=== PATIENT | female | born 1985 | race Caucasian/White ===

== ENCOUNTER 2017-08-09 13:02 | Emergency (ER) | payer MEDICAID, OTHER ==
[~2017-08-09] VITALS: Ht 160 cm; Wt 121.8 kg
[~2017-08-09 13:02] MED LIST: ALBU6.7H INH; LEVA15HF4 IH; LORA10TA2 PO; NO HOME MEDS; SIN10C PO
[2017-08-09 15:31] VITALS: BP 133/91
== END 2017-08-09 15:57 | disposition home or self-care (01) ==
LOC: ER 13:02
DX: R10.2 Pelvic and perineal pain (principal); J45.909 Unspecified asthma, uncomplicated; Z98.890 Other specified postprocedural states; Z88.0 Allergy status to penicillin; Z88.2 Allergy status to sulfonamides; Z88.8 Allergy status to other drugs, medicaments and biological substances; Z79.899 Other long term (current) drug therapy; Z91.018 Allergy to other foods
CPT/HCPCS: 99283

== ENCOUNTER 2018-09-20 20:40 | Emergency (ER) | payer BC ==
[~2018-09-20] VITALS: Ht 160 cm; Wt 115.7 kg
[~2018-09-20 20:40] MED LIST changes: -ALBU6.7H INH; +ALBU6.7H9 INH
[2018-09-20] MEDS ORDERED: NAPR-56 PO (22:07)
[2018-09-20 22:24] VITALS: BP 126/57
== END 2018-09-20 22:26 | disposition home or self-care (01) ==
LOC: ER 20:40
DX: S63.592A Other specified sprain of left wrist, initial encounter (principal); J45.909 Unspecified asthma, uncomplicated; F12.90 Cannabis use, unspecified, uncomplicated; Z98.890 Other specified postprocedural states; Z88.0 Allergy status to penicillin; Z88.2 Allergy status to sulfonamides; Z88.8 Allergy status to other drugs, medicaments and biological substances; Z91.018 Allergy to other foods; Z79.899 Other long term (current) drug therapy; X50.1XXA Overexertion from prolonged static or awkward postures, initial encounter; Y93.89 Activity, other specified; Y92.89 Other specified places as the place of occurrence of the external cause; Y99.8 Other external cause status; Y90.9 Presence of alcohol in blood, level not specified
CPT/HCPCS: 29125; 73130; 99283

== ENCOUNTER 2021-02-20 09:37 | Emergency (ER) | payer BC ==
[~2021-02-20] VITALS: Ht 160 cm; Wt 113.6 kg
[2021-02-20 10:05] VITALS: BP 146/107
[2021-02-20] MEDS ORDERED: PRED20TA PO (13:12)
== END 2021-02-20 13:23 | disposition home or self-care (01) ==
LOC: ER 09:38
DX: J20.8 Acute bronchitis due to other specified organisms (principal); Z20.822 Contact with and (suspected) exposure to COVID-19; J45.909 Unspecified asthma, uncomplicated; Z87.01 Personal history of pneumonia (recurrent); Z87.891 Personal history of nicotine dependence; Z72.89 Other problems related to lifestyle; Z79.899 Other long term (current) drug therapy; Z88.0 Allergy status to penicillin; Z88.2 Allergy status to sulfonamides; Z88.8 Allergy status to other drugs, medicaments and biological substances
CPT/HCPCS: 71045; 87502; 87503; 87635; 99284; C9803

== ENCOUNTER 2021-03-03 16:42 | Emergency (ER) | payer BC ==
[~2021-03-03] VITALS: Ht 160 cm; Wt 125.0 kg
[~2021-03-03 16:42] MED LIST changes: +PRED20TA PO
[2021-03-03] MEDS ORDERED: albuterol 2.5 MG/3 ML nebule CONTNEB PRN ×2 (17:00→19:30)
[2021-03-03] MEDS ORDERED: terbutaline 1 mg/ml inj SQ STA (17:08)
[2021-03-03] MEDS ORDERED: predniSONE 20 mg tablet PO ONE (17:10)
[2021-03-03] MEDS: albuterol 2.5 MG/3 ML nebule CONTNEB PRN ×2 (17:18→19:39)
[2021-03-03 17:19] LABS: BASOPHILS # (AUTO) 0.1 X10'3 (0-0.2); BASOPHILS % (AUTO) 0.7 % (0-1); EOSINOPHILS % (AUTO) 7.5 % (0-6); HEMATOCRIT 43.4 % (35.0-45.0); HEMOGLOBIN 14.2 g/dl (12.0-16.0); LYMPHOCYTES # (AUTO) 2.5 X10'3 (1.1-4.8); LYMPHOCYTES % (AUTO) 17.9 % (21-51); MEAN CORPUSCULAR HEMOGLOBIN 29.7 PG (27.0-31.0); MEAN CORPUSCULAR HGB CONC 32.7 g/dL (33.0-36.5); MEAN CORPUSCULAR VOLUME 90.8 FL (78-98); MEAN PLATELET VOLUME 7.2 FL (7.4-10.4); MONOCYTES # (AUTO) 0.7 X10'3 (0-0.9); MONOCYTES % (AUTO) 5.4 % (2-12); NEUTROPHILS # (AUTO) 9.4 X10'3 (1.8-7.7); NEUTROPHILS % (AUTO) 68.5 % (42-75); PLATELET COUNT 283 X10'3 (140-440); RED BLOOD COUNT 4.78 X10'6 (4.20-5.60); RED CELL DISTRIBUTION WIDTH 15.3 % (11.5-14.5); WHITE BLOOD COUNT 13.8 X10'3 (4.5-11.0)
[2021-03-03 17:31] LABS: ALANINE AMINOTRANSFERASE 54 U/L (12-78); ALBUMIN 3.6 G/DL (3.4-5.0); ALBUMIN/GLOBULIN RATIO 0.9 (1.1-1.5); ALKALINE PHOSPHATASE 86 IU/L (46-116); ANION GAP 8 (8-16); ASPARTATE AMINO TRANSFERASE 33 U/L (10-37); BILIRUBIN,TOTAL 0.2 MG/DL (0.1-1.0); BLOOD UREA NITROGEN 12 MG/DL (7-18); BUN/CREATININE RATIO 13.2 (6.6-38.0); CALCIUM 8.4 MG/DL (8.5-10.1); CHLORIDE 107 MMOL/L (99-107); CREATININE 0.91 MG/DL (0.40-0.90); GLUCOSE 107 MG/DL (70-104); POTASSIUM 4.2 MMOL/L (3.5-5.1); SODIUM 139 MMOL/L (135-145); TOTAL CARBON DIOXIDE 23.7 MMOL/L (24-32); TOTAL PROTEIN 7.4 G/DL (6.4-8.2); eGFR 70 ML/MIN
[2021-03-03] MEDS ORDERED: DOXYCYCLINE 100MG CAPSULE PO STA (21:36)
[2021-03-03] MEDS ORDERED: ALBU6.7H9 INH (21:38)
[2021-03-03] MEDS ORDERED: PRED20TA PO (21:38)
[2021-03-03] MEDS ORDERED: DOXY-411 PO (21:38)
[2021-03-03 21:42] VITALS: BP 147/90
== END 2021-03-03 21:43 | disposition home or self-care (01) ==
LOC: ER 16:43
DX: J45.901 Unspecified asthma with (acute) exacerbation (principal); Z88.0 Allergy status to penicillin; Z88.2 Allergy status to sulfonamides; Z88.8 Allergy status to other drugs, medicaments and biological substances
CPT/HCPCS: 36415; 71045; 80053; 83880; 85025; 93005; 94640; 94644; 94645; 96372; 99285; J3105; J7512; 94760; A7015

== ENCOUNTER 2022-06-20 15:50 | Emergency (ER) | payer BC ==
[~2022-06-20] VITALS: Ht 160 cm; Wt 115.0 kg
[~2022-06-20 15:50] MED LIST changes: +ALBU6.7H14 INH; -ALBU6.7H9 INH; -PRED20TA PO
[2022-06-20] MEDS ORDERED: LORazepam 1 MG tablet PO ONE (16:15)
[2022-06-20] MEDS ORDERED: normal saline 1000ML IV soln IVB ONE (16:15)
[2022-06-20 16:44] LABS: BASOPHILS # (AUTO) 0.1 X10'3 (0-0.2); BASOPHILS % (AUTO) 1.1 % (0-1); EOSINOPHILS # (AUTO) 0.6 X10'3 (0-0.9); EOSINOPHILS % (AUTO) 4.9 % (0-6); HEMATOCRIT 41.3 % (35.0-45.0); HEMOGLOBIN 13.7 g/dl (12.0-16.0); LYMPHOCYTES # (AUTO) 3.5 X10'3 (1.1-4.8); LYMPHOCYTES % (AUTO) 26.7 % (21-51); MEAN CORPUSCULAR HEMOGLOBIN 29.1 PG (27.0-31.0); MEAN CORPUSCULAR HGB CONC 33.1 g/dL (33.0-36.5); MEAN CORPUSCULAR VOLUME 87.9 FL (78-98); MEAN PLATELET VOLUME 7.9 FL (7.4-10.4); MONOCYTES # (AUTO) 0.7 X10'3 (0-0.9); MONOCYTES % (AUTO) 5.6 % (2-12); NEUTROPHILS % (AUTO) 61.7 % (42-75); PLATELET COUNT 295 X10'3 (140-440); RED CELL DISTRIBUTION WIDTH 15.2 % (11.5-14.5); WHITE BLOOD COUNT 12.9 X10'3 (4.5-11.0)
[2022-06-20 16:47] LABS: ALANINE AMINOTRANSFERASE 41 U/L (12-78); ALBUMIN 3.6 G/DL (3.4-5.0); ALBUMIN/GLOBULIN RATIO 1.1 (1.1-1.5); ALKALINE PHOSPHATASE 96 IU/L (46-116); ANION GAP 6 (8-16); ASPARTATE AMINO TRANSFERASE 9 U/L (10-37); BILIRUBIN,TOTAL 0.3 MG/DL (0.1-1.0); BLOOD UREA NITROGEN 21 MG/DL (7-18); BUN/CREATININE RATIO 24.7 (10.0-20.0); CHLORIDE 103 MMOL/L (99-107); CREATININE 0.85 MG/DL (0.40-0.90); GLUCOSE 130 MG/DL (70-104); POTASSIUM 4.1 MMOL/L (3.5-5.1); SODIUM 137 MMOL/L (135-145); TOTAL CARBON DIOXIDE 27.6 MMOL/L (24-32); eGFR 75 ML/MIN
[2022-06-20 17:07] LABS: CLARITY,URINE SLIGHTLY CLOUDY (Clear); COLOR,URINE YELLOW (Yellow); GLUCOSE, URINE NEGATIVE (Neg); KETONES,URINE NEGATIVE (Neg); LEUKOCYTE ESTERASE ,URINE NEGATIVE (Neg); NITRITES, URINE NEGATIVE (Neg); OCCULT BLOOD,URINE TRACE-INTACT (Neg); PROTEIN,URINE NEGATIVE (Neg); UROBILINOGEN,URINE 0.2 E.U/dL (0.2-1.0)
[2022-06-20 17:11] LABS: UA COLLECTION TYPE CLN CATCH MIDSTREAM
[2022-06-20 17:16] LABS: BACTERIA,URINE FEW /HPF (Neg); MUCUS STRANDS FEW /LPF (Neg); SQUAMOUS EPITHELIAL CELL,UR MODERATE /LPF (FEW); WBC,URINE 0-4 /HPF (0-4)
[2022-06-20 17:50] VITALS: BP 131/102
== END 2022-06-20 17:54 | disposition home or self-care (01) ==
LOC: ER 15:50
DX: R56.9 Unspecified convulsions (principal); J45.909 Unspecified asthma, uncomplicated; Z90.49 Acquired absence of other specified parts of digestive tract; Z88.0 Allergy status to penicillin; Z88.2 Allergy status to sulfonamides; Z88.8 Allergy status to other drugs, medicaments and biological substances; Z79.899 Other long term (current) drug therapy
CPT/HCPCS: 36415; 70450; 71045; 72125; 80053; 81001; 82948; 85025; 93005; 99285; J7030

== ENCOUNTER 2024-06-07 12:24 | Emergency (ER) | payer BC ==
[~2024-06-07] VITALS: Ht 162.6 cm; Wt 124.9 kg
[2024-06-07 12:28] VITALS: BP 138/89; PULSE 89; RESP 16; TEMP 97.6; O2SAT 98
== END 2024-06-07 13:55 | disposition home or self-care (01) ==
LOC: ER 12:25
DX: S63.91XA Sprain of unspecified part of right wrist and hand, initial encounter (principal); J45.909 Unspecified asthma, uncomplicated; Z88.0 Allergy status to penicillin; Z88.1 Allergy status to other antibiotic agents; Z88.2 Allergy status to sulfonamides; W23.0XXA Caught, crushed, jammed, or pinched between moving objects, initial encounter; Y93.89 Activity, other specified; Y92.89 Other specified places as the place of occurrence of the external cause; Y99.8 Other external cause status
CPT/HCPCS: 29125; 73130; 99283